=== PATIENT | male | born 1980 | race Caucasian/White ===

== ENCOUNTER 2019-03-14 19:50 | Emergency (ER) | payer SELFPAY ==
[2019-03-14] MEDS ORDERED: TAMSULOSIN HCL 0.4 MG CAP.SR.24H PO ONE (20:41)
[2019-03-14] MEDS ORDERED: MORPHINE SULFATE 10 MG/ML INJ IV ONE ×2 (20:41→23:58)
[2019-03-14] MEDS ORDERED: NORMAL SALINE 1000 ML 1,000 ML IV ONE (20:41)
[2019-03-14] MEDS ORDERED: KETOROLAC TROMETHAMINE INJ/PF 30 MG/1 ML SDV IV ONE (20:41)
[2019-03-14] MEDS ORDERED: ONDANSETRON HCL INJ/PF 4 MG/2 ML SDV IV ONE (20:41)
--- NOTE | 2019-03-14 20:43 | ER Document Report ---
ED Medical Screen (RME) - General Chief Complaint: Abdominal Pain Stated Complaint: ABDOMINAL PAIN Time Seen by Provider: 03/14/19 20:38 Primary Care Provider: ANNY ACOSTA [Primary Care Provider] - Follow up as needed - HPI Notes: 03/14/19 20:42 Patient is a 38-year-old male no significant past medical history presents complaining of sudden onset left flank pain that radiates around into his groin with 3 episodes of hematuria and nausea and vomiting. Patient states that the pain is relatively constant at this time. No fever. At this time, I do have a high clinical suspicion for ureteral stone. Initial work-up ordered. I have treated and performed a rapid initial assessment of this patient. A comprehensive ED assessment and evaluation of the patient, analysis of test results and completion of medical decision making process will be conducted by additional ED providers. PHYSICAL EXAMINATION: GENERAL: Patient is holding his left flank and cannot find a comfortable position. No other acute respiratory distress. Abdomen: Left CVA tenderness noted and mild tenderness to the left abdomen. - Related Data Allergies/Adverse Reactions: No Known Allergies Allergy (Verified 12/11/12 11:11) Past Medical History - Immunizations Hx Diphtheria, Pertussis, Tetanus Vaccination: Yes Physical Exam - Vital signs Vitals: Temp Pulse Resp BP Pulse Ox 98.0 F 126 H 22 H 137/107 H 95 03/14/19 20:30 03/14/19 20:30 03/14/19 20:30 03/14/19 20:30 03/14/19 20:30 Course - Vital Signs Vital signs: Temp Pulse Resp BP Pulse Ox 98.0 F 126 H 22 H 137/107 H 95 03/14/19 20:30 03/14/19 20:30 03/14/19 20:30 03/14/19 20:30 03/14/19 20:30 Doctor's Discharge - Discharge Referrals: ANNY ACOSTA [Primary Care Provider] - Follow up as needed
[2019-03-14 21:20] LABS: AMORPHOUS SEDIMENT,URINE TRACE /HPF; APPEARANCE,URINE TURBID; BILIRUBIN,URINE NEGATIVE (NEGATIVE); COLOR,URINE AMBER; GLUCOSE, URINE NEGATIVE (NEGATIVE); KETONES,URINE NEGATIVE (NEGATIVE); PROTEIN,URINE 100 mg/dL (NEGATIVE); URINE SPECIFIC GRAVITY 1.028; UROBILINOGEN,URINE NEGATIVE mg/dL (<2.0)
[2019-03-14 21:20] LABS: ABSOLUTE BASOPHILS # (AUTO) 0.1 10^3/uL (0.0-0.2); ABSOLUTE EOSINOPHILS # (AUTO) 0.2 10^3/uL (0.0-0.6); ABSOLUTE MONOCYTES (AUTO) 1.1 10^3/uL (0.1-1.4); ABSOLUTE NEUT (AUTO) 14.6 10^3/uL (1.7-8.2); BASOPHILS % (AUTO) 0.4 % (0-2); HEMOGLOBIN 17.6 g/dL (13.5-17.0); LYMPHOCYTES % (AUTO) 10.9 % (13-45); MEAN CORPUSCULAR HEMOGLOBIN 30.3 pg (27.0-33.4); MEAN CORPUSCULAR HGB CONC 34.6 g/dL (32.0-36.0); MEAN CORPUSCULAR VOLUME 88 fl (80-97); MONOCYTES % (AUTO) 6.4 % (3-13); PLATELET COUNT 232 10^3/uL (150-450); RED BLOOD COUNT 5.81 10^6/uL (4.35-5.55); RED CELL DISTRIBUTION WIDTH 12.8 % (11.5-14.0); SEGMENTED NEUTROPHILS % (AUTO) 81.3 % (42-78); TOTAL CELLS COUNTED % (AUTO) 100 %
[2019-03-14 21:38] LABS: ALBUMIN 4.8 g/dL (3.5-5.0); ALKALINE PHOSPHATASE 96 U/L (38-126); ANION GAP 11 (5-19); ASPARTATE AMINO TRANSFERASE 27 U/L (17-59); BILIRUBIN,TOTAL 0.5 mg/dL (0.2-1.3); BLOOD UREA NITROGEN 24 mg/dL (7-20); CALCIUM 10.4 mg/dL (8.4-10.2); CARBON DIOXIDE 26 mmol/L (22-30); CHLORIDE 103 mmol/L (98-107); GLUCOSE 114 mg/dL (75-110); POTASSIUM 4.4 mmol/L (3.6-5.0); TOTAL PROTEIN 7.8 g/dL (6.3-8.2)
--- NOTE | 2019-03-14 21:55 | RADIOLOGY REPORT (SQ) ---
EXAM DESCRIPTION: CLINICAL HISTORY: 38 years Male left flank pain, hematuria COMPARISON: None TECHNIQUE: Axial images without IV contrast. Sagittal coronal reconstruction. This exam was performed according to our departmental dose-optimization program, which includes automated exposure control, adjustment of the mA and/or kV according to patient size and/or use of iterative reconstruction technique.. FINDINGS: Lung bases are unremarkable. Tiny hiatal hernia. Mild fatty liver. Biliary system, spleen, pancreas, adrenal glands aorta and aortic regions are unremarkable. No suspicious bowel or peritoneal abnormalities. One or two tiny nonobstructing stones in each kidney. No right hydronephrosis. Minimal left hydronephrosis and left renal swelling. Minimal left ureteric dilatation. CT of the pelvis demonstrates a small amount of fat in the right inguinal canal. Urinary bladder contracted and difficult to evaluate. The mildly dilated distal left ureter can be seen also in the pelvis without obvious distal ureteric stone. Bowel loops are unremarkable. IMPRESSION: 1. One or two tiny nonobstructing stones in each kidney. 2. Mild acute left hydronephrosis and hydroureter. Obvious stone in distal left ureter is not seen. Differential diagnosis includes presence of a tiny stone that is not seen versus recent passage of a stone. 3. Fatty liver. 4. Tiny hiatal hernia. Tiny right inguinal hernia with herniation of fat.
[2019-03-14] MEDS ORDERED: CEFTRIAXONE INJ 1000 MG VIAL IV ONE (23:29)
[2019-03-14] MEDS ORDERED: ONDANSETRON HCL INJ/PF 4 MG/2 ML SDV ONE (23:45)
[2019-03-14] MEDS ORDERED: KETOROLAC TROMETHAMINE INJ/PF 30 MG/1 ML SDV ONE (23:45)
--- NOTE | 2019-03-14 23:57 | ER Document Report ---
ED GI/ - General Chief Complaint: Possible Kidney Stone Stated Complaint: ABDOMINAL PAIN Time Seen by Provider: 03/14/19 20:38 Primary Care Provider: ANNY ACOSTA [NO LOCAL MD] - Follow up as needed Information source: Patient Notes: 38-year-old man presents to the emergency department with a complaint of pain in the left flank and lower abdominal region radiating into the testicular region. He states his symptoms began this morning and have worsened through the afternoon. He denies a history of known kidney stones. He has had nausea without vomiting and a pain which he rates 7/10. He denies fever or dysuria. - Related Data Allergies/Adverse Reactions: No Known Allergies Allergy (Verified 12/11/12 11:11) Past Medical History - Social History Smoking Status: Current Every Day Smoker Family History: Reviewed & Not Pertinent Patient has suicidal ideation: No Patient has homicidal ideation: No - Immunizations Hx Diphtheria, Pertussis, Tetanus Vaccination: Yes Review of Systems - Review of Systems Notes: Constitutional: Negative for fever. HENT: Negative for sore throat. Eyes: Negative for visual changes. Cardiovascular: Negative for chest pain. Respiratory: Negative for shortness of breath. Gastrointestinal: Negative for abdominal pain, vomiting or diarrhea. Genitourinary: + Flank pain, + abdominal pain, + testicular pain Musculoskeletal: Negative for back pain. Skin: Negative for rash. Neurological: Negative for headaches, weakness or numbness. 10 point ROS negative except as marked above and in HPI. Physical Exam - Vital signs Vitals: Temp Pulse Resp BP Pulse Ox 98.0 F 126 H 22 H 137/107 H 95 03/14/19 20:30 03/14/19 20:30 03/14/19 20:30 03/14/19 20:30 03/14/19 20:30 - Notes Notes: PHYSICAL EXAMINATION: Physical Exam: General: Well-nourished well-developed in marked distress secondary to pain in the left flank and abdominal area. HEENT: NC/AT, pupils equal round and reactive to light, MM moist,nares clear, Neck: supple, no adenopathy, no masses. Lungs: clear, no wheezing, no rales no rhonchi CVS: Regular rate and rhythm no murmur gallop or rub Abdomen: Soft active nontender, no masses, no hepatosplenomegaly Ext: No edema clubbing or cyanosis. Neuro: Alert and responsive, moving all 4 extremities on command, cranial nerves intact. Skin: Intact no open lesions, no rash PSYCH: Normal mood, normal affect. Course - Re-evaluation Re-evalutation: 03/15/19 03:17 Patient has a small kidney stone in the left ureter which is causing severe pain. He is given Toradol, morphine and then a dose of hydromorphone which apparently relieved his pain. I explained to him that he may pass the stones without more significant symptoms. However he is given a prescription for Flomax, Keflex, Spalding. He is also instructed to follow-up with the urologist as needed. - Vital Signs Vital signs: Temp Pulse Resp BP Pulse Ox 98.0 F 88 16 146/101 H 93 03/14/19 20:30 03/15/19 02:55 03/15/19 02:55 03/15/19 02:55 03/15/19 02:55 - Laboratory Result Diagrams: 03/14/19 20:47 03/14/19 20:47 Laboratory results interpreted by me: 03/14/19 03/14/19 03/14/19 20:47 20:47 21:05 WBC 18.0 H RBC 5.81 H Hgb 17.6 H Lymph % (Auto) 10.9 L Absolute Neuts (auto) 14.6 H Seg Neutrophils % 81.3 H BUN 24 H Glucose 114 H Calcium 10.4 H Urine Protein 100 H Urine Blood LARGE H Leukocyte Esterase Rfl TRACE H Urine Ascorbic Acid 20 H - Diagnostic Test Radiology reviewed: Image reviewed, Reports reviewed - CT scan of the abdomen pelvis, noncontrast to small stones in the kidney and nonobstructing, hydronephrosis of the left ureter with no obvious stone identified either a tiny stone or a recently passed stone. Discharge - Discharge Clinical Impression: Renal colic on left side, Kidney stone on left side Hydronephrosis Qualifiers: Hydronephrosis type: unspecified Qualified Code(s): N13.30 - Unspecified hydronephrosis Condition: Good Disposition: HOME, SELF-CARE Instructions: Kidney Stone ([facility]) Additional Instructions: You were diagnosed with a kidney stone in the emergency department tonight, please push fluids and use the medications as prescribed Flomax, Spalding, Keflex for possible urinary tract infection and Zofran for nausea. Please follow-up with the urologist, Dr. Fajardo as needed. You may return to the emergency department if you are having severe difficulties and need to be rechecked. Referrals: DAVE,NO [NO LOCAL MD] - Follow up as needed VIOLETTE FAJARDO MD [NO LOCAL MD] - Follow up as needed
[2019-03-15] MEDS ORDERED: CEFTRIAXONE 1 GM/D5W RTU 1 GM/50 ML RTUPB IV ONE (01:02)
[2019-03-15] MEDS ORDERED: HYDROMORPHONE HCL INJ/PF 2 MG/ML AMPULE IV ONE (02:02)
[2019-03-15] MEDS ORDERED: HYDROCODONE/ACETAMINOPHEN 5-325 MG (6 TAB/ER DISP) PO PRN (03:28)
[2019-03-15 03:38] VITALS: BP 145/98
== END 2019-03-15 03:38 | disposition home or self-care (01) ==
LOC: ER 19:50
DX: N20.0 Calculus of kidney (principal); N13.30 Unspecified hydronephrosis; R10.30 Lower abdominal pain, unspecified; R11.0 Nausea; N50.819 Testicular pain, unspecified; F17.200 Nicotine dependence, unspecified, uncomplicated; Z87.442 Personal history of urinary calculi
CPT/HCPCS: 99284; 96375; 96365; 36415; 87086; 83690; 85025; 80053; 81001; 74176; J1885; J2270; J1170; J2405; J7030; J0696

== ENCOUNTER 2019-03-22 07:13 | Emergency (ER) | payer SELFPAY ==
[2019-03-22] MEDS ORDERED: NORMAL SALINE 1000 ML 1,000 ML IV ONE (08:44)
[2019-03-22] MEDS ORDERED: ONDANSETRON HCL INJ/PF 4 MG/2 ML SDV IV ONE (08:44)
[2019-03-22] MEDS ORDERED: KETOROLAC TROMETHAMINE INJ/PF 30 MG/1 ML SDV IV ONE (08:45)
[2019-03-22] MEDS ORDERED: TAMSULOSIN HCL 0.4 MG CAP.SR.24H PO ONE (08:45)
--- NOTE | 2019-03-22 08:45 | ER Document Report ---
ED GI/ - General Chief Complaint: Flank Pain Stated Complaint: FLANK PAIN Time Seen by Provider: 03/22/19 08:15 Notes: CHIEF COMPLAINT: Left flank pain worse for 1 day HPI: History is obtained from the patient, the chart, patient's mother. A 38-year-old male presenting again to the emergency department complaining of worsening flank pain for 1 day with slight nausea. No fever. Patient states he was seen a week ago and diagnosed with kidney stones. States this is the first time he has had kidney stones. Patient states that he thought that he had passed a kidney stone and was feeling slightly better after his visit last week. He states he was placed on antibiotics for UTI. Patient states yesterday the pain began again and became much worse. ROS: See HPI - all other systems were reviewed and are otherwise negative Constitutional: no fever Eyes: no drainage, no blurred vision ENT: no runny nose, no sore throat Cardiovascular: no chest pain Resp: no SOB, no cough GI: no vomiting, no diarrhea, + abdominal pain, positive nausea : no dysuria Integumentary: no rash Allergy: no hives Musculoskeletal: no extremity pain or swelling Neurological: no numbness/tingling, no weakness MEDICATIONS: I agree with the patient medications as charted by the RN. ALLERGIES: I agree with the allergies as charted by the RN. PAST MEDICAL HISTORY/PAST SURGICAL HISTORY: Reviewed and agree as charted by RN. SOCIAL HISTORY: Reviewed and agree as charted by RN. FAMILY HISTORY: No significant familial comorbid conditions directly related to patient complaint EXAM: Reviewed vital signs as charted by RN. CONSTITUTIONAL: Alert and oriented and responds appropriately to questions. Pale-appearing; well-nourished, moderate distress secondary to discomfort HEAD: Normocephalic; atraumatic EYES: PERRL; Conjunctivae clear, sclerae non-icteric ENT: normal nose; no rhinorrhea; moist mucous membranes; pharynx without lesions noted NECK: Supple without meningismus; non-tender; no cervical lymphadenopathy, no masses CARD: RRR; no murmurs, no clicks, no rubs, no gallops; symmetric distal pulses RESP: Normal chest excursion without splinting or tachypnea; breath sounds clear and equal bilaterally; no wheezes, no rhonchi, no rales ABD/GI: Normal bowel sounds; non-distended; soft, non-tender, no rebound, no guarding; no palpable organomegaly or masses. BACK: The back appears normal and is non-tender to palpation, there is mild left CVA tenderness EXT: Normal ROM in all joints; non-tender to palpation; no cyanosis, no effusion s, no edema SKIN: Pale color for age and race; warm; dry; good turgor; no acute lesions noted NEURO: Moves all extremities equally; Motor and sensory function intact PSYCH: The patient's mood and manner are appropriate. Grooming and personal hygiene are appropriate. MDM: 38-year-old male with kidney stone history seen 1 week ago for kidney stones. On review of his chart it was noted that he had several small kidney stones in the kidneys bilaterally. He is likely passing another small stone if he believes that he passed the last stone. Will obtain screening labs, pain management, reimage to evaluate for continued obstructing stone - Related Data Allergies/Adverse Reactions: No Known Allergies Allergy (Verified 03/22/19 07:43) Past Medical History - Social History Smoking Status: Current Every Day Smoker Family History: Reviewed & Not Pertinent Patient has suicidal ideation: No Patient has homicidal ideation: No - Immunizations Hx Diphtheria, Pertussis, Tetanus Vaccination: Yes Physical Exam - Vital signs Vitals: Temp Pulse Resp BP Pulse Ox 97.5 F 98 22 H 137/99 H 100 03/22/19 07:38 03/22/19 07:38 03/22/19 07:38 03/22/19 07:38 03/22/19 07:38 Course - Re-evaluation Re-evalutation: 03/22/19 12:25 Patient with mild hydronephrosis on the left suggesting recent stone passage no active stone currently he has bilateral renal nephrolithiasis. Patient has a mild leukocytosis likely from reaction to pain. His urine does not show evidence of infection. Plan to continue with pain management as needed, follow- up urology - Vital Signs Vital signs: Temp Pulse Resp BP Pulse Ox 97.5 F 98 22 H 137/99 H 100 03/22/19 07:38 03/22/19 07:38 03/22/19 07:38 03/22/19 07:38 03/22/19 07:38 - Laboratory Result Diagrams: 03/22/19 09:28 03/22/19 09:28 Laboratory results interpreted by me: 03/22/19 09:28 WBC 18.9 H Lymph % (Auto) 11.2 L Absolute Neuts (auto) 14.3 H Absolute Monos (auto) 2.0 H Discharge - Discharge Clinical Impression: Kidney stone on left side, Bilateral nephrolithiasis Disposition: HOME, SELF-CARE Additional Instructions: It appears that you have passed a kidney stone today. You still have kidney stones in both kidneys. Follow-up closely with urology for further evaluation and treatment call for appointment. Pain medications as prescribed no driving if taking narcotics Prescriptions: Tamsulosin HCl [Flomax 0.4 mg Cap.sr] 0.4 mg PO DAILY #7 cap.sr.24h Oxycodone HCl/Acetaminophen [Percocet 5-325 mg Tablet] 1 tab PO Q4H PRN #15 tablet PRN Reason: Ondansetron [Zofran Odt 4 mg Tablet] 1 - 2 tab PO Q4H PRN #15 tab.rapdis PRN Reason: For Nausea/Vomiting Referrals: DOE SPRINGER MD [NO LOCAL MD] - Follow up as needed
[2019-03-22 08:50] LABS: APPEARANCE,URINE CLEAR; BILIRUBIN,URINE NEGATIVE (NEGATIVE); COLOR,URINE YELLOW; GLUCOSE, URINE NEGATIVE (NEGATIVE); KETONES,URINE NEGATIVE (NEGATIVE); LEUKOCYTE ESTERASE,URINE NEGATIVE (NEGATIVE); NITRITE,URINE NEGATIVE (NEGATIVE); PROTEIN,URINE NEGATIVE (NEGATIVE); URINE SPECIFIC GRAVITY 1.023; UROBILINOGEN,URINE NEGATIVE mg/dL (<2.0)
[2019-03-22 09:49] LABS: ABSOLUTE BASOPHILS # (AUTO) 0.1 10^3/uL (0.0-0.2); ABSOLUTE EOSINOPHILS # (AUTO) 0.4 10^3/uL (0.0-0.6); ABSOLUTE LYMPHOCYTES (AUTO) 2.1 10^3/uL (0.5-4.7); ABSOLUTE NEUT (AUTO) 14.3 10^3/uL (1.7-8.2); BASOPHILS % (AUTO) 0.3 % (0-2); EOSINOPHILS % (AUTO) 2.1 % (0-6); HEMATOCRIT 44.5 % (37.9-51.0); HEMOGLOBIN 15.1 g/dL (13.5-17.0); LYMPHOCYTES % (AUTO) 11.2 % (13-45); MEAN CORPUSCULAR HGB CONC 33.9 g/dL (32.0-36.0); MEAN CORPUSCULAR VOLUME 88 fl (80-97); MONOCYTES % (AUTO) 10.5 % (3-13); PLATELET COUNT 321 10^3/uL (150-450); RED BLOOD COUNT 5.03 10^6/uL (4.35-5.55); RED CELL DISTRIBUTION WIDTH 12.9 % (11.5-14.0); SEGMENTED NEUTROPHILS % (AUTO) 75.9 % (42-78); TOTAL CELLS COUNTED % (AUTO) 100 %; WHITE BLOOD COUNT 18.9 10^3/uL (4.0-10.5)
[2019-03-22 10:10] LABS: ANION GAP 12 (5-19); BLOOD UREA NITROGEN 18 mg/dL (7-20); CALCIUM 10.1 mg/dL (8.4-10.2); CARBON DIOXIDE 27 mmol/L (22-30); CHLORIDE 100 mmol/L (98-107); GLUCOSE 110 mg/dL (75-110); POTASSIUM 4.4 mmol/L (3.6-5.0)
[2019-03-22] MEDS ORDERED: MORPHINE SULFATE 10 MG/ML INJ IV ONE (10:34)
--- NOTE | 2019-03-22 11:49 | RADIOLOGY REPORT (SQ) ---
EXAM DESCRIPTION: CT ABD/PELVIS NO ORAL OR IV COMPLETED DATE/TIME: 03/22/2019 11:31 am REASON FOR STUDY: left flank pain COMPARISON: None. TECHNIQUE: CT scan of the abdomen and pelvis performed without intravenous or oral contrast. Images reviewed with lung, soft tissue, and bone windows. Reconstructed coronal and sagittal MPR images revi ewed. All images stored on PACS. All CT scanners at this facility use dose modulation, iterative reconstruction, and/or weight based d osing when appropriate to reduce radiation dose to as low as reasonably achievable (ALARA). [facility]: Dose Right [facility]: CareDose [facility]: Dose Right [facility]: Teradose 4D [facility]: Wireless Toyz RADIATION DOSE: CT Rad equipment meets quality standard of care and radiation dose reduction techniq ues were employed. CTDIvol: 7.7 mGy. DLP: 455 mGy-cm.mGy. LIMITATIONS: None. FINDINGS: LOWER CHEST: No significant findings. No nodules or infiltrates. NON-CONTRASTED LIVER, SPLEEN, ADRENALS: Evaluation limited by lack of IV contrast. No identified sign ificant masses. PANCREAS: No masses. No peripancreatic inflammatory changes. GALLBLADDER: No identified stones by CT criteria. No inflammatory changes to suggest cholecystitis. RIGHT KIDNEY AND URETER: No suspicious masses. Assessment limited by lack of IV contrast. A few gardenia al calculi measuring up to 2 mm. No hydronephrosis or hydroureter. LEFT KIDNEY AND URETER: No suspicious masses. Assessment limited by lack of IV contrast. 2 mm lower pole calculus. Mild hydronephrosis and hydroureter. AORTA AND RETROPERITONEUM: No aneurysm. No retroperitoneal masses or adenopathy. BOWEL AND PERITONEAL CAVITY: No obvious masses or inflammatory changes. No free fluid. APPENDIX: Normal. PELVIS, BLADDER, AND ABDOMINAL WALL:No abnormal masses. No free fluid. Bladder normal. BONES: No significant findings. OTHER: No other significant finding. IMPRESSION: Bilateral renal calculi. Mild hydronephrosis on the left consistent with recent stone p assage. COMMENT: Quality ID # [id number]: Final reports with documentation of one or more dose reduction techniques (e.g., Automated exposure control, adjustment of the mA and/or kV according to patient size, use of iterative reconstruction technique) TECHNICAL DOCUMENTATION: JOB ID: [id number] [employer]- All Rights Reserved Reading location - IP/workstation name: [email or web address]
[2019-03-22 12:45] VITALS: BP 147/98
== END 2019-03-22 12:45 | disposition home or self-care (01) ==
LOC: ER 07:13
DX: N13.2 Hydronephrosis with renal and ureteral calculous obstruction (principal); R10.9 Unspecified abdominal pain; R11.0 Nausea; F17.200 Nicotine dependence, unspecified, uncomplicated
CPT/HCPCS: 99284; 96361; 96374; 96375; 36415; 85025; 80048; 81001; 74176; J1885; J2270; J2405; J7030